=== PATIENT | female | born 2000 ===

== ENCOUNTER 2024-02-05 01:49 | Outpatient (CLI) | payer OTHER ==
[~2024-02-05] VITALS: Ht 152.4 cm; Wt 92.3 kg
--- NOTE | 2024-02-05 02:00 | NUR ---
24 YO PRESENTS TO OBT VIA WHEELCHAIR ACCOMPANIED BY SPOUSE AND UNIT TECH. PT COMPLAINT OF CONTRACTIONS EVERY 10 MIN SINCE AROUND 1900 LAST NIGHT. PT REPORTS SOME BROWN SPOTTING AROUND THE SAME TIME. PT DENIES LOF, BRIGHT RED VAGINAL BLEEDING. PT ENDORSES MOVEMENT. PT CHANGED INTO GOWN, PLACED ON EFM X2 AND VS OBTAINED: WNL. SVE COMPLETED BY RN: /-3.
[2024-02-05] MEDS ORDERED: PRENATAL TABLET PO (02:29)
[2024-02-05 02:30] VITALS: BP 137/89; PULSE 81; TEMP 98.2
[2024-02-05] MEDS ORDERED: LR 1,000 ML IV PRN (02:30)
--- NOTE | 2024-02-05 04:38 | NUR ---
WRITTEN AND VERBAL DISCHARGE INSTRUCTION PROVIDED TO PT AND SPOUSE. PT VERBALIZED UNDERSTANDING AND DENIES QUESTIONS/CONCERS AT THIS TIME. 0440: PT AMUBLATED OFF UNIT TO POV ACCOMPANIED BY SPOUSE AND RN. PT STABLE AT TIME OF DC.
[2024-02-07] MEDS ORDERED: MOTRIN 600600 MG/TAB PO (08:33)
== END 2024-02-05 04:40 | disposition home or self-care (01) ==
LOC: LDRO 01:49
DX: Z34.93 Encounter for supervision of normal pregnancy, unspecified, third trimester (principal); Z3A.37 37 weeks gestation of pregnancy